=== PATIENT | female | born 1945 | race Caucasian/White ===

== ENCOUNTER → 2016-04-28 | Outpatient (CLI) | payer MEDICARE, OTHER | LOC: RAD 08:17 | PROVIDERS: ATTEND Family Medicine | DX: Z12.31 Encounter for screening mammogram for malignant neoplasm of breast (principal) ==

== ENCOUNTER → 2016-05-12 | Outpatient (CLI) | payer MEDICARE, OTHER | LOC: RAD 08:53 | PROVIDERS: ATTEND Family Medicine | DX: R92.1 Mammographic calcification found on diagnostic imaging of breast (principal) ==

== ENCOUNTER 2016-05-22 10:01 | Day surgery (SDC) | payer MEDICARE, OTHER ==
[~2016-05-22] VITALS: Ht 160 cm; Wt 100.0 kg
[~2016-05-22 10:01] MED LIST: ASPI-860 PO; LACTATED RINGERS 1,000 ML IV SCH; LANS15CA5 PO; LIDOCAINE 2% (XYLOCAINE) 20 ML VIAL INJ SCH; LIDOCAINE/EPINEPHRINE 2% 1:100,000 (XYLOCAINE) 30 ML VIAL INJ SCH; NFLOSA25TA PO; SIMV80TA3 PO; SODIUM CHLORIDE FLUSH 3 ML SYR IV PRN
--- OUTSIDE RECORDS SUMMARY | 2016-05-22 10:05 | XMS REPORT | Continuity of Care Document ---
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 Name Role Phone Yuli Sánchez PP Unavailable Payers Payer name Insurance type Covered republican ID Authorization(s) Unknown Problems Condition Effective Dates (start - stop) Clinical Status Sleep Apnea, Obstructive - Improved Sleep Apnea, Obstructive - Uncertain Sleep Apnea, Obstructive - *Controlled Family History Family Member Diagnosis Age At Onset Status Unknown Social History Social History Element Description Quantity Unknown Allergies, Adverse Reactions, Alerts Substance Reaction Severity Status Unknown Medications Medication Instructions Dosage Effective Dates (start - stop) Status Prevacid 15 mg capsule,delayed release take 1 capsule (15MG) by oral route every day before a meal 15 MG - Active hydrochlorothiazide 25 mg tablet take 1 tablet (25MG) by oral route every day 25 MG - Active losartan 25 mg tablet take 1 tablet (25MG) by oral route every day 25 MG - Active simvastatin 40 mg tablet take 1 tablet (40MG) by oral route every day in the evening 40 MG - Active aspirin 81 mg tablet,delayed release take 1 tablet (81MG) by oral route every day 81 MG - Active Immunizations Vaccine Date Status Comments Unknown Results Test Name Date and Time Measure Units Reference Range Abnormal Flag Comments Unknown Vital Signs Date / Time: Height Weight Pulse Rate Blood Pressure Temperature :40:00 64.00 in 197.00 lbs 70 /min 118/82 mm[Hg] Procedures Procedure Date Unknown Encounters Encounter Location Date Patient Visit [facility] Patient Visit [facility] Patient Visit [facility] Advance Directives Directive Effective Date Unknown
[2016-05-22 10:10] VITALS: BP 140/77
[2016-05-22 11:23] VITALS: BP 128/82
--- NOTE | 2016-05-22 17:41 | Diagnostic Imaging Report ---
INDICATION: Microcalcifications. Previous mammograms reviewed. Planned procedure discussed with the patient and informed consent obtained. DESCRIPTION OF PROCEDURE: Utilizing aseptic technique and following local anesthesia with lidocaine, a needle was advanced into the site of interest via stereotactic guidance and vacuum-assisted aspiration core biopsy then performed. Following adequate specimen obtained, a biopsy clip was placed into the cavity. Limited nondiagnostic ML and CC mammograms were performed following biopsied showing successful retrieval of the calcifications of interest in good positioning of the placed localization clip. IMPRESSION: Successful stereotactic guided biopsy of right breast calcifications and deployment of a localization clip, no complication. Dictated by: Dictated on workstation # [id number]
== END 2016-05-22 11:30 | disposition home or self-care (01) ==
LOC: ASC 10:01
PROVIDERS: ATTEND Family Medicine
DX: D24.2 Benign neoplasm of left breast (principal); N60.22 Fibroadenosis of left breast; R92.0 Mammographic microcalcification found on diagnostic imaging of breast
CPT/HCPCS: 19081; 88305; A4648